=== PATIENT | female | born 1960 | race Caucasian/White ===

== ENCOUNTER 2019-05-27 18:44 | Emergency (ER) | payer OTHER ==
[2019-05-27 18:56] VITALS: TEMP 98.2; BMI 31.2
--- NOTE | 2019-05-27 19:38 | PDOC ---
History of Present Illness - General Chief Complaint: Lightheaded Stated Complaint: DIZZY Time Seen by Provider: 05/27/19 19:37 History Source: Patient, Family (son) Exam Limitations: No Limitations - History of Present Illness Initial Comments: 05/27/19 20:07 Conchis Felix is a 58yF with PMHx HTN HLD presenting with lightheadedness. Started when she woke up and sat up from bed this morning. Feels as if she is spinning. Associated nausea, no vomiting. Worse when she is standing and walking around. She only had coffee and a small plate of veggies all day. Denies fever, SOB, chest/AB pain, urinary/bowel changes. All symptoms resolved when she arrived at [facility] ED. She has been losing weight recently walking and eating healthy. Past History - Past Medical History Allergies/Adverse Reactions: Allergies Allergy/AdvReac Type Severity Reaction Status Date / Time No Known Allergies Allergy Verified 05/27/19 18:54 Home Medications: Ambulatory Orders Simvastatin [Zocor -] 20 mg PO HS 05/27/19 COPD: No - Immunization History Immunization Up to Date: Yes - Suicide/Smoking/Psychosocial Hx Smoking History: Never smoked Have you smoked in the past 12 months: No Information on smoking cessation initiated: No Hx Alcohol Use: No Drug/Substance Use Hx: No Review of Systems - Review of Systems Constitutional: No: Chills, Fever, Weakness HEENTM: No: Eye Pain, Double Vision, Ear Discharge, Nose Pain, Throat Pain, Mouth Pain Respiratory: No: Cough, Shortness of Breath Cardiac (ROS): No: Chest Pain, Irregular Heart Rate, Palpitations, Syncope ABD/GI: Yes: Nausea. No: Abdominal Distended, Constipated, Diarrhea, Vomiting : No: Burning, Dysuria, Flank Pain, Hematuria, Incontinence Musculoskeletal: No: Back Pain, Joint Pain, Muscle Pain, Neck Pain Integumentary: No: Bruising, Change in Color, Flushing, Lesions, Lumps Neurological: Yes: Dizziness. No: Headache, Paresthesia, Seizure, Tingling, Tremors Psychiatric: No: Anxiety, Depression Endocrine: No: Excessive Sweating, Flushing, Intolerance to Cold, Intolerance to Heat Hematologic/Lymphatic: No: Anemia, Blood Clots, Easy Bleeding *Physical Exam - Vital Signs Last Vital Signs Temp Pulse Resp BP Pulse Ox 98.2 F 80 17 115/73 100 05/27/19 18:53 05/27/19 18:53 05/27/19 18:53 05/27/19 18:53 05/27/19 18:53 - Physical Exam General Appearance: Yes: Nourished, Appropriately Dressed. No: Apparent Distress HEENT: positive: EOMI, LUCI, Normal Voice, Hearing Grossly Normal. negative: Scleral Icterus (R), Scleral Icterus (L), Tonsillar Exudate, Nasal Congestion, Rhinorrhea, Sinus Tenderness, TM Bulging, TM Dull, TM Erythema, Lesions Respiratory/Chest: positive: Lungs Clear, Normal Breath Sounds. negative: Chest Tender, Respiratory Distress, Crackles, Rales, Rhonchi, Stridor, Wheezing Cardiovascular: positive: Regular Rhythm, Regular Rate, S1, S2. negative: Edema , Murmur Gastrointestinal/Abdominal: positive: Normal Bowel Sounds, Flat, Soft. negative : Tender, Organomegaly, Distended, Guarding, Rebound Musculoskeletal: negative: CVA Tenderness (R), CVA Tenderness (L) Integumentary: positive: Normal Color Neurologic: positive: dry sander II-XII NML intact, Fully Oriented, Alert, Responsive. negative: Sensory Deficit, Confused, Disoriented Medical Decision Making - Medical Decision Making 05/27/19 19:57 Conchis Felix is a 58yF with PMHx HTN HLD presenting with lightheadedness. Consider orthostatic hypotension vs BPPV vs vasovagal/cardiogenic presyncope. Pt feels back to baseline in ED, all symptoms relieved, afebrile, refuses workup. D/c home w PCP f/u *DC/Admit/Observation/Transfer Diagnosis at time of Disposition: Lightheadedness - Discharge Dispostion Disposition: HOME Condition at time of disposition: Good Decision to Admit order: No - Referrals Referrals: Carola Wu [Primary Care Provider] - - Patient Instructions Printed Discharge Instructions: DI for Dizziness-Nonvertigo Additional Instructions: You were seen in the ED for lightheadedness. Your history and physical exam did not show anything concerning. Please follow up with your primary care doctor regarding your ED visit Come back to the ED if you are vomiting, painful headache, or fall down - Post Discharge Activity
[2019-05-27 20:22] VITALS: BP 100/69; PULSE 68
--- NOTE | 2019-05-28 00:18 | PDOC ---
Documentation entered by Dariela Dueñas SCRIBE, acting as scribe for Francesca Storey MD. Francesca Storey MD: This documentation has been prepared by the scribe, Dariela Dueñas SCRIBE, under my direction and personally reviewed by me in its entirety. I confirm that the documentation accurately reflects all work, treatment, procedures, and medical decision making performed by me. Attending Attestation - Resident Resident Name: Uriel Arthur - ED Attending Attestation I have performed the following: I have examined & evaluated the patient, The case was reviewed & discussed with the resident, I agree w/resident's findings & plan, Exceptions are as noted - HPI HPI: 05/27/19 20:06 The patient is a 58-year-old female, with a past medical history of HTN and HLD , who presents to the ED with lightheadedness and dizziness. Patient is now feeling better. Denies any chest pain or shortness of breath. No blacking out. No weakness. No neurological deficits. She reports just having a cup of coffee and a small serving of rice and vegetables all day. Patient's BP is low. States she takes 20 mg of enalapril. She has been losing weight because she has been walking and exercising. - Physicial Exam PE: 05/27/19 20:10 GENERAL: Awake, alert, and fully oriented, in no acute distress HEAD: No signs of trauma EYES: PERRLA, EOMI, sclera anicteric, conjunctiva clear ENT: Auricles normal inspection, hearing grossly normal, nares patent, oropharynx clear without exudates. Moist mucosa NECK: Normal ROM, supple, no lymphadenopathy, JVD, or masses LUNGS: Breath sounds equal, clear to auscultation bilaterally. No wheezes, and no crackles HEART: Regular rate and rhythm, normal S1 and S2, no murmurs, rubs or gallops ABDOMEN: Soft, nontender, normoactive bowel sounds. No guarding, no rebound. No masses EXTREMITIES: Normal range of motion, no edema. No clubbing or cyanosis. No cords, erythema, or tenderness NEUROLOGICAL: Cranial nerves II through XII grossly intact. Normal speech. SKIN: Warm, Dry, normal turgor, no rashes or lesions noted - Medical Decision Making 05/28/19 00:16 Pt is feeling better; she ate very little today; she has been exercising and losing weight and eating more healthfully amd likely her BP meds are too strong. She feels well and wants to go home. BP 115 and 110 systolic. I explained to the patient that she is stable to go home and that she will be discharged with instructions to follow with her PMD and to request that he adjust her BP. Heart Score/ECG Review - ECG Intrepretation Rhythm: Regular Rhythm - [place]: Normal - P and MD Prominent R with upright T in V1 (true posterior IA): No Delta Wave(s) Present: No WPW: No - QRS Poor R Wave Progression: No Q Wave Present: No - ST and T Early Repolarization: No Flattened T Waves: No Prolonged Q-T Interval: No - ECG Impressions Normal ECG: Yes Non-specific ST Elevation: No Ischemic Changes: No
--- NOTE | 2019-06-02 11:40 | EKG ---
Test Reason : Blood Pressure : / mmHG Vent. Rate : 076 BPM Atrial Rate : 076 BPM P-R Int : 196 ms QRS Dur : 072 ms QT Int : 384 ms P-R-T Axes : 052 024 037 degrees QTc Int : 432 ms POOR DATA QUALITY, INTERPRETATION MAY BE ADVERSELY AFFECTED NORMAL SINUS RHYTHM NORMAL ECG NO PREVIOUS ECGS AVAILABLE Confirmed by LUIS FERNANDO CONNOLLY, LACHELLE ([id number]) on 06/02/2019 11:40:16 AM Referred By: Confirmed By:LACHELLE GOULD MD
== END 2019-05-27 20:34 | disposition home or self-care (01) ==
LOC: JER 18:44
DX: R42 Dizziness and giddiness (principal); I10 Essential (primary) hypertension; E78.5 Hyperlipidemia, unspecified
CPT/HCPCS: 93005; 93010; 99282-25

== ENCOUNTER 2024-02-04 10:39 | Observation (INO) | payer BC, OTHER ==
[2024-02-04 12:17] LABS: VENOUS BASE EXCESS -6.2 mmol/L (-2-2); VENOUS O2 SATURATION 51.8 % (70-80); VENOUS PCO2 42.6 mmHg (38-52); VENOUS PH 7.291 (7.310-7.410)
[2024-02-04] MEDS ORDERED: methylPREDNISolone NA SUCC 125 MG/2 ML VIAL ONE (12:18)
[2024-02-04] MEDS ORDERED: ALBUTEROL SO4 2.5/IPRATROPIUM 0.5 INH SOL 3 ML VIAL.NEB. NEB ONE ×3 (12:18→16:54)
[2024-02-04 12:19] LABS: BASO % 0.6 % (0-2.0); EOS % 5.4 % (0-4.5); HEMATOCRIT 41.5 % (32.4-45.2); HEMOGLOBIN 13.4 GM/dL (10.7-15.3); LYMPH % 19.1 % (8-40); MCH 30.3 pg (25.7-33.7); MCHC 32.3 g/dl (32.0-36.0); MEAN CELL VOLUME 93.9 fl (80-96); MEAN PLT VOLUME 7.5 fl (7.5-11.1); MONO % 5.8 % (3.8-10.2); NEUT % 69.1 % (42.8-82.8); PLATELET COUNT 372 10^3/uL (134-434); RBC 4.42 M/mm3 (3.60-5.2); RDW 13.8 % (11.6-15.6); WHITE BLOOD COUNT 10.1 K/mm3 (4.0-10.0)
[2024-02-04 12:28] LABS: INR 0.97 (0.83-1.09)
[2024-02-04 12:31] LABS: ACTIVATED PTT 29.1 SECONDS (25.2-36.5)
[2024-02-04] MEDS: ALBUTEROL SO4 2.5/IPRATROPIUM 0.5 INH SOL 3 ML VIAL.NEB. NEB ONE (12:36)
[2024-02-04] MEDS: methylPREDNISolone NA SUCC 125 MG/2 ML VIAL IVPB ONE (12:37)
[2024-02-04 14:38] LABS: CHLORIDE 105 mmol/L (98-107); SODIUM 136 mmol/L (136-145)
[2024-02-04 14:41] LABS: BLOOD UREA NITROGEN 19.9 mg/dL (7-18); CALCIUM 9.9 mg/dL (8.5-10.1)
[2024-02-04 14:42] LABS: ALBUMIN 4.2 g/dl (3.4-5.0); CO2 24 mmol/L (21-32); GLUCOSE,RANDOM 91 mg/dL (74-106); MAGNESIUM 2.3 mg/dL (1.8-2.4)
[2024-02-04 14:45] LABS: SGOT/AST 58 U/L (15-37); SGPT/ALT 36 U/L (13-61)
[2024-02-04 14:46] LABS: TOT PROT 8.9 g/dl (6.4-8.2)
[2024-02-04 14:48] LABS: ALK PHOS 42 U/L (45-117)
[2024-02-04 14:50] LABS: N-TERMINAL BNP 49.2 pg/ml (5-125)
[2024-02-04 14:52] LABS: BILIRUBIN,TOTAL 0.5 mg/dL (0.2-1)
[2024-02-04 14:55] LABS: ANION GAP 8 mmol/L (4-13); POTASSIUM 6.5 mmol/L (3.5-5.1)
[2024-02-04 15:45] LABS: POTASSIUM 4.5 mmol/L (3.5-5.1)
[2024-02-04 15:46] LABS: CALCIUM 9.8 mg/dL (8.5-10.1)
[2024-02-04 15:47] LABS: ALBUMIN 4.3 g/dl (3.4-5.0); BLOOD UREA NITROGEN 19.2 mg/dL (7-18)
[2024-02-04 15:50] LABS: CREATININE 1.1 mg/dL (0.55-1.3)
[2024-02-04 15:52] LABS: BILIRUBIN,TOTAL 0.3 mg/dL (0.2-1); TOT PROT 8.1 g/dl (6.4-8.2)
[2024-02-04] MEDS ORDERED: ALBUTEROL SO4 0.083% IH SOL 2.5 MG/3 ML VIAL.NEB. NEB PRN (20:06)
[2024-02-04] MEDS ORDERED: ACETAMINOPHEN 325 MG TABLET (FP) PO PRN (20:21)
[2024-02-04] MEDS: ATORVASTATIN CA 10 MG TABLET (FP) PO SCH (21:02)
[2024-02-04] MEDS: guaiFENesin 200 MG/10 ML 10 ML UNIT-DOSE CUPS PO PRN (21:02)
[2024-02-04 22:00] LABS: ALLENS TEST POSITIVE; ARTERIAL BLD GAS O2 SATURATION 95.6 % (95-98); ARTERIAL BLOOD GAS BASE EXCESS -6.8 mmol/L (-2-2); ARTERIAL BLOOD GAS PO2 80.4 mmHg (80-100); ARTERIAL BLOOD GAS pH 7.359 (7.350-7.450)
[2024-02-04] MEDS ORDERED: PATIENT'S OWN MEDICATION (NON-FORMULARY) (Simvastatin 20 MG Tablet) PO SCH (22:00)
[2024-02-04] MEDS: SODIUM CHLORIDE 1,000 ML IV SCH (22:18)
[2024-02-04] MEDS ORDERED: FLU VACCINE (FLULAVAL) PF 60 MCG/0.5 ML SYRINGE 2023-2024 IM ONE (22:51)
[2024-02-04 23:04] LABS: EPI CELLS >36 /uL (0-25.1); HYALINE CASTS 17 /uL (0-3.1); URINE APPEARANCE CLOUDY; URINE BACTERIA 8 /uL (0-1359); URINE BILIRUBIN NEGATIVE (NEGATIVE); URINE COLOR YELLOW; URINE GLUCOSE (UA) NEGATIVE (NEGATIVE); URINE KETONE TRACE (NEGATIVE); URINE LEUK ESTERASE 2+ (NEGATIVE); URINE NITRITE NEGATIVE (NEGATIVE); URINE PROTEIN NEGATIVE (NEGATIVE); URINE RBC 13 /uL (0-23.9); URINE UROBILINOGEN 0.2 mg/dL (0.2-1.0); URINE WBC 151 /uL (0-25.8)
[2024-02-04 23:26] VITALS: RESP 20
[2024-02-05 06:49] LABS: BASO % 0.3 % (0-2.0); EOS % 0.3 % (0-4.5); HEMOGLOBIN 11.2 GM/dL (10.7-15.3); LYMPH % 16.6 % (8-40); MCH 30.8 pg (25.7-33.7); MCHC 32.9 g/dl (32.0-36.0); MEAN CELL VOLUME 93.7 fl (80-96); MEAN PLT VOLUME 7.8 fl (7.5-11.1); MONO % 7.3 % (3.8-10.2); NEUT % 75.5 % (42.8-82.8); PLATELET COUNT 319 10^3/uL (134-434); RBC 3.62 M/mm3 (3.60-5.2); RDW 13.5 % (11.6-15.6); WHITE BLOOD COUNT 11.7 K/mm3 (4.0-10.0)
[2024-02-05 07:03] LABS: POTASSIUM 4.7 mmol/L (3.5-5.1)
[2024-02-05 07:06] LABS: CALCIUM 9.1 mg/dL (8.5-10.1)
[2024-02-05 07:07] LABS: BLOOD UREA NITROGEN 37.3 mg/dL (7-18)
[2024-02-05 07:10] LABS: CREATININE 1.5 mg/dL (0.55-1.3)
[2024-02-05] MEDS: FENOFIBRIC ACID 135 MG CAP PO SCH (11:18)
[2024-02-05] MEDS: methylPREDNISolone NA SUCC 40 MG/1 ML VIAL IVPUSH SCH ×2 (11:18→14:52)
[2024-02-05] MEDS: FLU VACCINE (FLULAVAL) PF 60 MCG/0.5 ML SYRINGE 2023-2024 IM ONE (12:12)
[2024-02-05] MEDS ORDERED: ALBUTEROL SO4 0.083% IH SOL 2.5 MG/3 ML VIAL.NEB. NEB PRN (13:13)
[2024-02-05 13:59] LABS: POTASSIUM 5.1 mmol/L (3.5-5.1)
[2024-02-05 14:01] LABS: ALBUMIN 4.2 g/dl (3.4-5.0); CALCIUM 10.2 mg/dL (8.5-10.1)
[2024-02-05 14:05] LABS: CREATININE 1.4 mg/dL (0.55-1.3)
[2024-02-05 14:07] LABS: BILIRUBIN,TOTAL 0.2 mg/dL (0.2-1); TOT PROT 8.1 g/dl (6.4-8.2)
[2024-02-05] MEDS: ALBUTEROL SO4 2.5/IPRATROPIUM 0.5 INH SOL 3 ML VIAL.NEB. NEB SCH (14:41)
[2024-02-05] MEDS: SODIUM CHLORIDE 0.45% 1,000 ML IV SCH (14:51)
[2024-02-05 15:59] VITALS: BMI 34.6
[2024-02-05] MEDS ORDERED: methylPREDNISolone NA SUCC 40 MG/1 ML VIAL IVPUSH SCH (18:00)
[2024-02-05] MEDS: MONTELUKAST NA 10 MG TABLET PO SCH (21:47)
[2024-02-06 08:15] LABS: HEMATOCRIT 34.5 % (32.4-45.2); HEMOGLOBIN 11.4 GM/dL (10.7-15.3); MCH 30.8 pg (25.7-33.7); MEAN CELL VOLUME 93.5 fl (80-96); MEAN PLT VOLUME 8.1 fl (7.5-11.1); PLATELET COUNT 331 10^3/uL (134-434); RBC 3.69 M/mm3 (3.60-5.2); WHITE BLOOD COUNT 13.7 K/mm3 (4.0-10.0)
[2024-02-06 08:20] LABS: BASO % 0.1 % (0-2.0); HEMATOCRIT 33.5 % (32.4-45.2); HEMOGLOBIN 11.3 GM/dL (10.7-15.3); MCHC 33.7 g/dl (32.0-36.0); MEAN CELL VOLUME 91.9 fl (80-96); MONO % 2.2 % (3.8-10.2); NEUT % 86.7 % (42.8-82.8); PLATELET COUNT 331 10^3/uL (134-434); RBC 3.65 M/mm3 (3.60-5.2); RDW 14.1 % (11.6-15.6); WHITE BLOOD COUNT 13.7 K/mm3 (4.0-10.0)
[2024-02-06 08:39] LABS: POTASSIUM 5.2 mmol/L (3.5-5.1)
[2024-02-06 08:52] LABS: BLOOD UREA NITROGEN 35.2 mg/dL (7-18); CALCIUM 9.4 mg/dL (8.5-10.1)
[2024-02-06 08:53] LABS: ALBUMIN 3.6 g/dl (3.4-5.0)
[2024-02-06 08:55] LABS: BILIRUBIN,TOTAL 0.2 mg/dL (0.2-1); CREATININE 1.1 mg/dL (0.55-1.3)
[2024-02-06] MEDS: guaiFENesin/D-METHORPHAN HB 10 ML UNIT-DOSE CUPS PO PRN (09:42)
[2024-02-06 09:54] LABS: URINE APPEARANCE CLEAR; URINE BILIRUBIN NEGATIVE (NEGATIVE); URINE COLOR YELLOW; URINE GLUCOSE (UA) NEGATIVE (NEGATIVE); URINE KETONE NEGATIVE (NEGATIVE); URINE LEUK ESTERASE NEGATIVE (NEGATIVE); URINE NITRITE NEGATIVE (NEGATIVE); URINE PROTEIN NEGATIVE (NEGATIVE); URINE UROBILINOGEN 0.2 mg/dL (0.2-1.0)
[2024-02-06] MEDS ORDERED: ACETAMINOPHEN 325 MG TABLET (FP) PO PRN (15:30)
[2024-02-06] MEDS: amLODIPine BESYLATE 5 MG TABLET (FP) PO SCH (17:13)
[2024-02-06] MEDS: ATORVASTATIN CA 10 MG TABLET (FP) PO SCH (21:34)
[2024-02-07 07:16] LABS: POTASSIUM 4.9 mmol/L (3.5-5.1)
[2024-02-07 07:22] LABS: CALCIUM 9.5 mg/dL (8.5-10.1)
[2024-02-07 07:23] LABS: ALBUMIN 3.5 g/dl (3.4-5.0); BLOOD UREA NITROGEN 33.4 mg/dL (7-18)
[2024-02-07 07:26] LABS: CREATININE 1.1 mg/dL (0.55-1.3)
[2024-02-07 07:28] LABS: BILIRUBIN,TOTAL 0.2 mg/dL (0.2-1)
[2024-02-07 07:29] LABS: HEMATOCRIT 35.3 % (32.4-45.2); HEMOGLOBIN 11.5 GM/dL (10.7-15.3); MCH 30.4 pg (25.7-33.7); MCHC 32.6 g/dl (32.0-36.0); MEAN CELL VOLUME 93.2 fl (80-96); MEAN PLT VOLUME 8.1 fl (7.5-11.1); PLATELET COUNT 331 10^3/uL (134-434); RBC 3.79 M/mm3 (3.60-5.2); RDW 13.6 % (11.6-15.6); WHITE BLOOD COUNT 15.6 K/mm3 (4.0-10.0)
[2024-02-07] MEDS: FENOFIBRIC ACID 135 MG CAP PO SCH (09:36)
[2024-02-07 10:47] LABS: ANISOCYTOSIS 0; HELMET CELLS 0; HOWELL-JOLLY BODIES 0; MACROCYTOSIS 0; OVALOCYTE 0; ROULEAU 0; SICKELED CELLS 0; TARGET CELLS 0; TEAR DROP CELLS 0; TOXIC GRANULATION 0
[2024-02-07 15:13] VITALS: BP 136/82; PULSE 89; TEMP 98.9
[2024-02-10 00:06] LABS: BORDETELLA PERTUSSIS IG-M <1.0 index (0.0-0.9); PERTUSSIS TOXIN IGA <1.0 index (0.0-0.9); PERTUSSIS TOXIN IGG 2.47 index (0.00-0.94)
== END 2024-02-07 18:15 | disposition home or self-care (01) ==
LOC: JER 10:39 → JERBED 16:31 → J5S 19:02 → J4W 22:25
PROVIDERS: ADMIT Internal Medicine; ATTEND Internal Medicine
PROC: 3E0F7GC Introduction of Other Therapeutic Substance into Respiratory Tract, Via Natural or Artificial Opening (ICD-10-PCS; principal; 2024-02-04)
PROC: 3E0337Z Introduction of Electrolytic and Water Balance Substance into Peripheral Vein, Percutaneous Approach (ICD-10-PCS; 2024-02-04)
PROC: 3E033GC Introduction of Other Therapeutic Substance into Peripheral Vein, Percutaneous Approach (ICD-10-PCS; 2024-02-04)
DX: N17.9 Acute kidney failure, unspecified (principal); J98.01 Acute bronchospasm; R05.9 Cough, unspecified; R06.09 Other forms of dyspnea; E78.5 Hyperlipidemia, unspecified; E87.5 Hyperkalemia; R06.02 Shortness of breath; I10 Essential (primary) hypertension; M19.90 Unspecified osteoarthritis, unspecified site
CPT/HCPCS: 0241U-QW; 36415; 36600; 71045-TC-FY; 71250-TC; 76775-TC; 80048; 80053; 80061; 81003; 82550; 82803; 83036; 83735; 83880; 84439; 84443; 84484; 85025; 85027; 85379; 85610; 85730; 86615; 87040; 87070; 87086; 87205; 93005; 93010; 93306-TC; 93970-TC; 94150; 94640; 99285-25; G0378

== ENCOUNTER 2024-02-08 12:26 | Observation (INO) | payer BC, OTHER ==
[2024-02-08] MEDS ORDERED: ALBUTEROL SO4 2.5/IPRATROPIUM 0.5 INH SOL 3 ML VIAL.NEB. NEB ONE (13:34)
[2024-02-08] MEDS ORDERED: ACETYLCYSTEINE 20% 200MG/ML 4 ML VIAL *FOR ORAL / INH USE ONLY ONE (13:34)
[2024-02-08] MEDS ORDERED: methylPREDNISolone NA SUCC 125 MG/2 ML VIAL ONE (13:44)
[2024-02-08] MEDS: ALBUTEROL SO4 2.5/IPRATROPIUM 0.5 INH SOL 3 ML VIAL.NEB. NEB ONE (15:09)
[2024-02-08] MEDS: methylPREDNISolone NA SUCC 125 MG/2 ML VIAL IVPUSH ONE (15:09)
[2024-02-08] MEDS: ACETYLCYSTEINE 20% 200MG/ML 30 ML VIAL *FOR ORAL / INH USE ONLY NEB ONE (15:09)
[2024-02-08 15:25] LABS: HEMATOCRIT 39.7 % (32.4-45.2); HEMOGLOBIN 12.9 GM/dL (10.7-15.3); MCH 30.1 pg (25.7-33.7); MCHC 32.5 g/dl (32.0-36.0); MEAN CELL VOLUME 92.8 fl (80-96); MEAN PLT VOLUME 7.8 fl (7.5-11.1); PLATELET COUNT 368 10^3/uL (134-434); RBC 4.28 M/mm3 (3.60-5.2); RDW 14.1 % (11.6-15.6)
[2024-02-08 15:44] LABS: ANISOCYTOSIS 1+; MACROCYTOSIS 0
[2024-02-08 15:55] LABS: BLOOD UREA NITROGEN 33.1 mg/dL (7-18); CALCIUM 9.8 mg/dL (8.5-10.1); MAGNESIUM 2.5 mg/dL (1.8-2.4)
[2024-02-08 15:58] LABS: CREATININE 1.1 mg/dL (0.55-1.3)
[2024-02-08 16:00] LABS: BILIRUBIN,TOTAL 0.4 mg/dL (0.2-1)
[2024-02-08 16:02] LABS: ALBUMIN 4.3 g/dl (3.4-5.0)
[2024-02-08] MEDS ORDERED: guaiFENesin/CODEINE 10 ML UNIT-DOSE CUPS ONE (18:43)
[2024-02-08] MEDS: guaiFENesin 200 MG/10 ML 10 ML UNIT-DOSE CUPS PO ONE (18:44)
[2024-02-08] MEDS: ATORVASTATIN CA 10 MG TABLET (FP) PO SCH (21:31)
[2024-02-08] MEDS: MONTELUKAST NA 10 MG TABLET PO SCH (21:31)
[2024-02-08 22:50] VITALS: BMI 33.9
[2024-02-09] MEDS: methylPREDNISolone NA SUCC 40 MG/1 ML VIAL IVPUSH SCH (01:08)
[2024-02-09 07:22] LABS: HEMATOCRIT 35.9 % (32.4-45.2); HEMOGLOBIN 12.1 GM/dL (10.7-15.3); MCH 31.4 pg (25.7-33.7); MCHC 33.6 g/dl (32.0-36.0); MEAN CELL VOLUME 93.4 fl (80-96); MEAN PLT VOLUME 7.9 fl (7.5-11.1); PLATELET COUNT 337 10^3/uL (134-434); RBC 3.84 M/mm3 (3.60-5.2); RDW 13.2 % (11.6-15.6); WHITE BLOOD COUNT 10.7 K/mm3 (4.0-10.0)
[2024-02-09 07:38] LABS: POTASSIUM 4.4 mmol/L (3.5-5.1)
[2024-02-09 07:55] LABS: CALCIUM 9.4 mg/dL (8.5-10.1)
[2024-02-09 07:56] LABS: ALBUMIN 3.6 g/dl (3.4-5.0); BLOOD UREA NITROGEN 30.2 mg/dL (7-18)
[2024-02-09 07:58] LABS: BILIRUBIN,TOTAL 0.4 mg/dL (0.2-1)
[2024-02-09 07:59] LABS: CREATININE 1.1 mg/dL (0.55-1.3)
[2024-02-09 08:00] LABS: TOT PROT 7.2 g/dl (6.4-8.2)
[2024-02-09] MEDS: ALBUTEROL SO4 2.5/IPRATROPIUM 0.5 INH SOL 3 ML VIAL.NEB. NEB PRN (08:31)
[2024-02-09 09:24] LABS: ANISOCYTOSIS 1+; MACROCYTOSIS 0
[2024-02-09] MEDS: ENOXAPARIN NA (PORCINE) 40 MG/0.4 ML DISP.SYRIN SQ SCH (09:51)
[2024-02-09] MEDS: amLODIPine BESYLATE 5 MG TABLET (FP) PO SCH (09:51)
[2024-02-09] MEDS: BUDESONIDE/FORMETEROL FUMARATE 160/4.5 mcg INHALER IH SCH (21:29)
[2024-02-10 09:10] VITALS: RESP 18
[2024-02-10 17:59] VITALS: BP 127/79; PULSE 70; TEMP 98.1
[2024-02-11 11:30] LABS: N-TERMINAL BNP 129.1 pg/ml (5-125)
== END 2024-02-10 19:02 | disposition home or self-care (01) ==
LOC: JER 12:26 → JERBED 15:42 → UNDOADMOB 15:42 → OBSVTOIN 19:54 → INTOOBSV 19:54 → J4W 20:35 → JERBED 20:35 → J4W 02-09 09:55 → JERBED 02-09 09:55
PROVIDERS: ADMIT Internal Medicine; ATTEND Internal Medicine
PROC: 3E0F7GC Introduction of Other Therapeutic Substance into Respiratory Tract, Via Natural or Artificial Opening (ICD-10-PCS; principal; 2024-02-09)
PROC: 3E023GC Introduction of Other Therapeutic Substance into Muscle, Percutaneous Approach (ICD-10-PCS; 2024-02-09)
PROC: 3E033GC Introduction of Other Therapeutic Substance into Peripheral Vein, Percutaneous Approach (ICD-10-PCS; 2024-02-09)
DX: R06.00 Dyspnea, unspecified (principal); R09.02 Hypoxemia; E78.5 Hyperlipidemia, unspecified; I10 Essential (primary) hypertension; R00.2 Palpitations; M19.90 Unspecified osteoarthritis, unspecified site; N17.9 Acute kidney failure, unspecified; R06.02 Shortness of breath
CPT/HCPCS: 36415; 71045-TC-FY; 78452-TC; 80053; 80061; 82550; 83036; 83735; 83880; 84443; 84484; 85025; 87633; 93005; 93010; 93017; 94640; 94761; 96374; 96376; 99285-25; A9502; G0378

== ENCOUNTER 2024-07-01 16:13 | Emergency (ER) | payer BC, OTHER ==
[2024-07-01 16:29] VITALS: PULSE 78; RESP 18; BMI 31.8
[2024-07-01] MEDS ORDERED: ALBUTEROL SO4 2.5/IPRATROPIUM 0.5 INH SOL 3 ML VIAL.NEB. NEB ONE (17:22)
[2024-07-01] MEDS: ALBUTEROL SO4 2.5/IPRATROPIUM 0.5 INH SOL 3 ML VIAL.NEB. NEB ONE (17:45)
[2024-07-01 17:51] LABS: BASO % 1.1 % (0-2.0); EOS % 0.3 % (0-4.5); HEMATOCRIT 39.8 % (32.4-45.2); HEMOGLOBIN 13.1 GM/dL (10.7-15.3); LYMPH % 19.9 % (8-40); MCH 29.5 pg (25.7-33.7); MEAN CELL VOLUME 89.4 fl (80-96); MEAN PLT VOLUME 7.6 fl (7.5-11.1); MONO % 4.7 % (3.8-10.2); PLATELET COUNT 315 10^3/uL (134-434); RBC 4.45 M/mm3 (3.60-5.2); RDW 14.7 % (11.6-15.6); WHITE BLOOD COUNT 9.9 K/mm3 (4.0-10.0)
[2024-07-01 18:12] LABS: POTASSIUM 4.6 mmol/L (3.5-5.1)
[2024-07-01] MEDS: SODIUM CHLORIDE 1,000 ML IV ONE (18:13)
[2024-07-01 18:14] LABS: CALCIUM 9.9 mg/dL (8.5-10.1)
[2024-07-01 18:15] LABS: ALBUMIN 4.4 g/dl (3.4-5.0)
[2024-07-01 18:19] LABS: BILIRUBIN,TOTAL 0.2 mg/dL (0.2-1); TOT PROT 8.7 g/dl (6.4-8.2)
[2024-07-01 18:45] VITALS: BP 127/59; TEMP 97.6
== END 2024-07-01 19:21 | disposition home or self-care (01) ==
LOC: JER 16:13
PROC: 3E0F7GC Introduction of Other Therapeutic Substance into Respiratory Tract, Via Natural or Artificial Opening (ICD-10-PCS; principal; 2024-07-01)
PROC: 3E0337Z Introduction of Electrolytic and Water Balance Substance into Peripheral Vein, Percutaneous Approach (ICD-10-PCS; 2024-07-01)
DX: R06.02 Shortness of breath (principal); J45.901 Unspecified asthma with (acute) exacerbation; J06.9 Acute upper respiratory infection, unspecified; R05.9 Cough, unspecified; R09.81 Nasal congestion; Z20.822 Contact with and (suspected) exposure to COVID-19
CPT/HCPCS: 0241U-QW; 36415; 71046-TC-FY; 80053; 84484; 85025; 93005; 93010; 99285-25

== ENCOUNTER 2024-08-22 14:10 | Observation (INO) | payer BC, OTHER ==
[2024-08-22 14:26] VITALS: BMI 30.9
[2024-08-22 15:08] LABS: BASO % 0.5 % (0-2.0); EOS % 1.4 % (0-4.5); HEMATOCRIT 40.8 % (32.4-45.2); HEMOGLOBIN 13.6 GM/dL (10.7-15.3); LYMPH % 9.8 % (8-40); MCH 29.5 pg (25.7-33.7); MCHC 33.2 g/dl (32.0-36.0); MEAN CELL VOLUME 88.9 fl (80-96); MEAN PLT VOLUME 7.4 fl (7.5-11.1); MONO % 3.4 % (3.8-10.2); NEUT % 84.9 % (42.8-82.8); PLATELET COUNT 342 10^3/uL (134-434); RBC 4.59 M/mm3 (3.60-5.2); RDW 14.9 % (11.6-15.6); WHITE BLOOD COUNT 11.9 K/mm3 (4.0-10.0)
[2024-08-22 15:09] LABS: VENOUS BASE EXCESS 0.8 mmol/L (-2-2); VENOUS O2 SATURATION 75.8 % (70-80); VENOUS PCO2 42.8 mmHg (38-52); VENOUS PH 7.399 (7.310-7.410)
[2024-08-22] MEDS ORDERED: FAMOTIDINE 10 MG TABLET ONE (15:12)
[2024-08-22] MEDS ORDERED: ALBUTEROL SO4 2.5/IPRATROPIUM 0.5 INH SOL 3 ML VIAL.NEB. NEB ONE ×2 (15:12→15:13)
[2024-08-22 15:14] LABS: INR 0.94 (0.83-1.09); PROTHROMBIN TIME (PATIENT) 10.6 SEC (9.7-13.0)
[2024-08-22] MEDS: ALBUTEROL SO4 2.5/IPRATROPIUM 0.5 INH SOL 3 ML VIAL.NEB. NEB SCH ×2 (15:14→20:19)
[2024-08-22] MEDS: FAMOTIDINE 10 MG TABLET PO ONE (15:14)
[2024-08-22] MEDS: predniSONE 10 MG TABLET (UD) PO ONE (15:15)
[2024-08-22] MEDS ORDERED: predniSONE 10 MG TABLET (UD) ONE (15:16)
[2024-08-22 15:17] LABS: ACTIVATED PTT 27.2 SECONDS (25.2-36.5)
[2024-08-22 15:42] LABS: POTASSIUM 4.5 mmol/L (3.5-5.1)
[2024-08-22 15:44] LABS: ALBUMIN 4.2 g/dl (3.4-5.0); BLOOD UREA NITROGEN 16.1 mg/dL (7-18); MAGNESIUM 2.2 mg/dL (1.8-2.4)
[2024-08-22] MEDS ORDERED: AZITHROMYCIN 500 MG TABLET ONE (15:45)
[2024-08-22 15:47] LABS: PHOSPHOROUS 3.3 mg/dL (2.5-4.9)
[2024-08-22 15:48] LABS: CREATININE 0.9 mg/dL (0.55-1.3)
[2024-08-22] MEDS: AZITHROMYCIN 500 MG TABLET PO ONE (15:48)
[2024-08-22 15:49] LABS: BILIRUBIN,TOTAL 0.4 mg/dL (0.2-1); TOT PROT 8.1 g/dl (6.4-8.2)
[2024-08-22 18:21] LABS: URINE APPEARANCE CLEAR; URINE BILIRUBIN NEGATIVE (NEGATIVE); URINE COLOR YELLOW; URINE GLUCOSE (UA) NEGATIVE (NEGATIVE); URINE KETONE NEGATIVE (NEGATIVE); URINE LEUK ESTERASE NEGATIVE (NEGATIVE); URINE NITRITE NEGATIVE (NEGATIVE); URINE PROTEIN NEGATIVE (NEGATIVE); URINE UROBILINOGEN 0.2 mg/dL (0.2-1.0)
[2024-08-22] MEDS ORDERED: MAGNESIUM 1GM/D5W - 1 GM/100 ML IVPB IVPB ONE (18:48)
[2024-08-22] MEDS ORDERED: TERBUTALINE SULFATE 1 MG/1 ML VIAL SQ ONE (18:48)
[2024-08-22] MEDS ORDERED: ALBUTEROL SO4 0.083% IH SOL 2.5 MG/3 ML VIAL.NEB. NEB ONE (18:48)
[2024-08-22] MEDS: ALBUTEROL SO4 0.083% IH SOL 2.5 MG/3 ML VIAL.NEB. NEB ONE (18:49)
[2024-08-22] MEDS: TERBUTALINE SULFATE 1 MG/1 ML VIAL SQ ONE (18:49)
[2024-08-22] MEDS: MAGNESIUM 1GM/D5W 100ML - 100 ML IVPB IVPB ONE (19:02)
[2024-08-22] MEDS: MONTELUKAST NA 10 MG TABLET PO SCH (21:49)
[2024-08-22] MEDS: ATORVASTATIN CA 10 MG TABLET (FP) PO SCH (21:49)
[2024-08-22] MEDS: methylPREDNISolone NA SUCC 40 MG/1 ML VIAL IVPUSH SCH (21:49)
[2024-08-22] MEDS: BUDESONIDE/FORMETEROL FUMARATE 160/4.5 mcg INHALER IH SCH (22:19)
[2024-08-23] MEDS: predniSONE 10 MG TABLET (UD) PO SCH (09:17)
[2024-08-23] MEDS: amLODIPine BESYLATE 5 MG TABLET (FP) PO SCH (09:17)
[2024-08-23 09:43] LABS: BASO % 0.1 % (0-2.0); HEMATOCRIT 38.1 % (32.4-45.2); HEMOGLOBIN 12.5 GM/dL (10.7-15.3); LYMPH % 8.5 % (8-40); MCH 29.2 pg (25.7-33.7); MCHC 32.8 g/dl (32.0-36.0); MEAN CELL VOLUME 88.9 fl (80-96); MONO % 2.5 % (3.8-10.2); NEUT % 88.9 % (42.8-82.8); PLATELET COUNT 322 10^3/uL (134-434); RBC 4.28 M/mm3 (3.60-5.2); RDW 14.9 % (11.6-15.6); WHITE BLOOD COUNT 11.5 K/mm3 (4.0-10.0)
[2024-08-23 10:15] LABS: POTASSIUM 4.2 mmol/L (3.5-5.1)
[2024-08-23 10:22] LABS: CALCIUM 9.6 mg/dL (8.5-10.1)
[2024-08-23 10:23] LABS: ALBUMIN 3.9 g/dl (3.4-5.0); MAGNESIUM 2.3 mg/dL (1.8-2.4)
[2024-08-23 10:26] LABS: BILIRUBIN,TOTAL 0.3 mg/dL (0.2-1); CREATININE 0.9 mg/dL (0.55-1.3); TOT PROT 7.4 g/dl (6.4-8.2)
[2024-08-23] MEDS: TIOTROPIUM BROMIDE 2.5 MCG (SPIRIVA) RESPIMAT INHALER IH SCH (17:33)
[2024-08-24 10:12] LABS: HEMATOCRIT 39.1 % (32.4-45.2); HEMOGLOBIN 12.6 GM/dL (10.7-15.3); MCHC 32.2 g/dl (32.0-36.0); MEAN CELL VOLUME 90.1 fl (80-96); MEAN PLT VOLUME 7.8 fl (7.5-11.1); PLATELET COUNT 339 10^3/uL (134-434); RBC 4.34 M/mm3 (3.60-5.2); RDW 14.8 % (11.6-15.6); WHITE BLOOD COUNT 15.3 K/mm3 (4.0-10.0)
[2024-08-24] MEDS: LORATADINE 10 MG TABLET PO SCH (10:24)
[2024-08-24] MEDS: predniSONE 20 MG TABLET (UD) PO SCH (10:24)
[2024-08-24] MEDS: HEPARIN NA (PORCINE) 5,000 UNITS/ML 1ML VIAL SQ SCH (10:24)
[2024-08-24 10:32] LABS: POTASSIUM 3.9 mmol/L (3.5-5.1)
[2024-08-24 10:37] LABS: BLOOD UREA NITROGEN 20.1 mg/dL (7-18); CALCIUM 9.6 mg/dL (8.5-10.1); MAGNESIUM 2.1 mg/dL (1.8-2.4)
[2024-08-24 10:41] LABS: BILIRUBIN,TOTAL 0.4 mg/dL (0.2-1); TOT PROT 7.4 g/dl (6.4-8.2)
[2024-08-24 11:17] LABS: ANISOCYTOSIS 0; MACROCYTOSIS 0
[2024-08-24] MEDS: ALBUTEROL SO4 0.083% IH SOL 2.5 MG/3 ML VIAL.NEB. NEB PRN (12:16)
[2024-08-25 02:16] VITALS: RESP 18
[2024-08-25 07:36] LABS: HEMATOCRIT 38.7 % (32.4-45.2); HEMOGLOBIN 12.6 GM/dL (10.7-15.3); MCH 29.4 pg (25.7-33.7); MCHC 32.6 g/dl (32.0-36.0); MEAN CELL VOLUME 90.1 fl (80-96); MEAN PLT VOLUME 7.7 fl (7.5-11.1); PLATELET COUNT 310 10^3/uL (134-434); RBC 4.29 M/mm3 (3.60-5.2); RDW 14.7 % (11.6-15.6); WHITE BLOOD COUNT 11.8 K/mm3 (4.0-10.0)
[2024-08-25 07:55] LABS: POTASSIUM 4.6 mmol/L (3.5-5.1)
[2024-08-25 07:58] LABS: CALCIUM 9.5 mg/dL (8.5-10.1)
[2024-08-25 07:59] LABS: ALBUMIN 3.7 g/dl (3.4-5.0); BLOOD UREA NITROGEN 23.7 mg/dL (7-18); MAGNESIUM 2.1 mg/dL (1.8-2.4)
[2024-08-25 08:04] LABS: BILIRUBIN,TOTAL 0.3 mg/dL (0.2-1); TOT PROT 6.8 g/dl (6.4-8.2)
[2024-08-25 09:27] LABS: ANISOCYTOSIS 1+; MACROCYTOSIS 2+
[2024-08-25 14:36] VITALS: BP 110/68; PULSE 89; TEMP 99
== END 2024-08-25 18:28 | disposition home or self-care (01) ==
LOC: JER 14:10 → JERBED 17:39 → J4S 19:24
PROVIDERS: ADMIT Internal Medicine; ATTEND Family Medicine
PROC: 3E0F7GC Introduction of Other Therapeutic Substance into Respiratory Tract, Via Natural or Artificial Opening (ICD-10-PCS; principal; 2024-08-22)
PROC: 3E033GC Introduction of Other Therapeutic Substance into Peripheral Vein, Percutaneous Approach (ICD-10-PCS; 2024-08-22)
PROC: 3E023GC Introduction of Other Therapeutic Substance into Muscle, Percutaneous Approach (ICD-10-PCS; 2024-08-22)
DX: J66.8 Airway disease due to other specific organic dusts (principal); J45.909 Unspecified asthma, uncomplicated; R79.89 Other specified abnormal findings of blood chemistry; N28.1 Cyst of kidney, acquired; I10 Essential (primary) hypertension; E78.5 Hyperlipidemia, unspecified; M19.90 Unspecified osteoarthritis, unspecified site
CPT/HCPCS: 0241U-QW; 36415; 71045-TC-FY; 71046-TC-FY; 71275-TC; 80053; 81003; 82103; 82803; 83735; 84100; 84484; 85025; 85610; 85730; 93005; 93010; 94640; 94660; 94761; 96372; 96374; 96375; 99285-25; G0378; J1644

== ENCOUNTER 2025-06-01 06:20 | Day surgery (SDC) | payer BC, OTHER ==
[2025-05-30 14:03] VITALS: BMI 31.4
[2025-06-01] MEDS ORDERED: ACETAMINOPHEN 500 MG TABLET (FP) PO PRN (09:08)
[2025-06-01 10:46] VITALS: RESP 20
[2025-06-01] MEDS ORDERED: LIDOCAINE HCL 1%, 10 MG/ML (20ML VIAL) ONE (12:50)
[2025-06-01] MEDS ORDERED: LIDOCAINE HCL/PF 1% SDV 5ML VIAL ONE (12:52)
[2025-06-01 16:39] VITALS: BP 130/70; PULSE 70; TEMP 97
== END 2025-06-01 14:15 | disposition home or self-care (01) ==
LOC: JASU-SURG 06:20
PROVIDERS: ATTEND Pain Medicine Pain Medicine
PROC: 3E0U3BZ Introduction of Anesthetic Agent into Joints, Percutaneous Approach (ICD-10-PCS; 2025-06-01)
PROC: 3E0U33Z Introduction of Anti-inflammatory into Joints, Percutaneous Approach (ICD-10-PCS; principal; 2025-06-01 13:04)
DX: M16.11 Unilateral primary osteoarthritis, right hip (principal)
CPT/HCPCS: 76000-TC-FY

== ENCOUNTER 2025-07-13 05:59 | Day surgery (SDC) | payer BC, OTHER ==
[2025-07-13] MEDS ORDERED: BUPIVACAINE HCL/PF 0.5% (5MG/ML) 10 ML VIAL ONE (07:25)
[2025-07-13] MEDS ORDERED: TRIAMCINOLONE ACET 40MG/1ML VIAL ONE (07:25)
[2025-07-13] MEDS ORDERED: LIDOCAINE HCL/PF 1% SDV 5ML VIAL ONE (07:26)
[2025-07-13 07:42] VITALS: RESP 20
[2025-07-13] MEDS: LIDOCAINE HCL 1%, 10 MG/ML (20ML VIAL) INF ONE ×2 (08:37)
[2025-07-13] MEDS: BUPIVACAINE HCL/PF 0.5% (5MG/ML) 10 ML VIAL IJ ONE ×2 (08:37)
[2025-07-13] MEDS: IOHEXOL 180 MG/1 ML ML IJ ONE ×2 (08:38)
[2025-07-13] MEDS: TRIAMCINOLONE ACETONIDE 40 MG/ML 10 ML VIAL IJ ONE ×2 (08:39)
[2025-07-13 08:55] VITALS: PULSE 68
[2025-07-13 09:07] VITALS: BP 122/70; TEMP 97.8
[2025-07-13] MEDS ORDERED: ACETAMINOPHEN 500 MG TABLET (FP) PO PRN (20:21)
== END 2025-07-13 09:40 | disposition home or self-care (01) ==
LOC: JASU-SURG 05:59
PROVIDERS: ATTEND Pain Medicine Pain Medicine
PROC: 3E0U3BZ Introduction of Anesthetic Agent into Joints, Percutaneous Approach (ICD-10-PCS; 2025-07-13)
PROC: 3E0U33Z Introduction of Anti-inflammatory into Joints, Percutaneous Approach (ICD-10-PCS; principal; 2025-07-13 08:30)
DX: M53.3 Sacrococcygeal disorders, not elsewhere classified (principal)
CPT/HCPCS: 76000-TC-FY